=== PATIENT | female | born 1985 | race Caucasian/White ===

== ENCOUNTER 2023-12-01 10:36 | Emergency (ER) | payer OTHER ==
[2023-12-01 10:47] VITALS: BP 117/71; PULSE 74; RESP 20; TEMP 98.8; BMI 28.8
== END 2023-12-01 12:06 | disposition home or self-care (01) ==
LOC: JERFT 10:36
DX: M25.572 Pain in left ankle and joints of left foot (principal); S82.892D Other fracture of left lower leg, subsequent encounter for closed fracture with routine healing
CPT/HCPCS: 99283-25